=== PATIENT | female | born 1955 | race Caucasian/White ===

== ENCOUNTER → 2017-07-07 | Outpatient (CLI) | payer OTHER ==
[~2017-07-07] MED LIST: METF500 PO; OXYACE5T PO; RANI150 PO; [UNRECOGNIZED DRUG - REMARK]; [UNRECOGNIZED DRUG - REMARK]
[2017-07-07 13:37] LABS: BASOPHILS ABSOLUTE AUTO 0.05 K/mm3 (0.00-0.23); BASOPHILS PERCENT AUTO 1 % (0-2); EOSINOPHILS ABSOLUTE AUTO 0.22 K/mm3 (0.00-0.68); EOSINOPHILS PERCENT AUTO 3 % (0-6); Hematocrit 36.8 % (33.0-51.0); Hemoglobin 12.1 g/dL (11.5-16.0); IMMATURE GRAN ABSOLUTE AUTO 0.02 K/mm3 (0.00-0.10); IMMATURE GRAN PERCENT AUTO 0 % (0-1); LYMPHOCYTES PERCENT AUTO 40 % (21-46); MONOCYTES ABSOLUTE AUTO 0.57 K/mm3 (0.16-1.47); MONOCYTES PERCENT AUTO 9 % (4-13); Mean Corpuscular HGB Conc 32.9 g/dL (31.5-36.5); Mean Corpuscular Volume 88 fL (80-100); Mean Platelet Volume 10.7 fL (9.1-12.4); NEUTROPHILS ABSOLUTE AUTO 3.04 K/mm3 (1.96-9.15); NEUTROPHILS PERCENT AUTO 47 % (41-73); Platelet Count 299 K/mm3 (150-400); RDW Coefficient Variation 12.6 % (11.7-14.2); RDW Standard Deviation 40.7 fL (35.1-46.3); Red Blood Cell Count 4.17 M/mm3 (3.80-5.20)
[2017-07-07 14:39] LABS: Alanine Aminotransfer (ALT/SGP 19 U/L (12-78); Albumin, Blood 3.5 g/dL (3.4-5.0); Albumin/Globulin Ratio 0.9 (0.8-1.8); Alk Phos 70 U/L (50-136); Anion Gap 11 mmol/L (6-16); Aspartate Aminotrans (AST/SGOT 14 U/L (12-37); Bilirubin, Total 0.5 mg/dL (0.1-1.0); Blood Urea Nitrogen 18 mg/dL (8-24); Bun/Creatinine Ratio 19.7 (12.0-20.0); CO2, Blood 25 mmol/L (21-32); Calcium, Blood 9.1 mg/dL (8.5-10.1); Chloride, Blood 103 mmol/L (98-108); Creatinine, Blood 0.92 mg/dL (0.40-1.00); Globulin, Blood 3.9 g/dL (2.2-4.0); Glomerular Filtration Rate >60 (60-); Glucose, Blood 178 mg/dL (70-99); HDL Cholesterol 41 mg/dL (>39); Potassium, Blood 3.9 mmol/L (3.5-5.5); Sodium, Blood 139 mmol/L (136-145); Total Protein, Blood 7.4 g/dL (6.4-8.2); Triglycerides 223 mg/dL (30-160); Very Low Density Lipoprot Chol 44 mg/dL (6-32)
[2017-07-07 15:08] LABS: CHOL/HDL RATIO 3.4; Cholesterol 138 mg/dL (50-200); LDL/HDL RATIO 1.3; Low Density Lipoprotein Chol 52 mg/dL (0-110)
== END | disposition home or self-care (01) ==
LOC: LAB 13:21
PROVIDERS: Nurse Practitioner Family
DX: E03.9 Hypothyroidism, unspecified (principal); I12.9 Hypertensive chronic kidney disease with stage 1 through stage 4 chronic kidney disease, or unspecified chronic kidney disease; N18.2 Chronic kidney disease, stage 2 (mild); E55.9 Vitamin D deficiency, unspecified
CPT/HCPCS: 80053; 80061; 82652; 84443; 85025

== ENCOUNTER 2018-10-22 12:00 | Emergency (ER) | payer OTHER ==
[~2018-10-22] VITALS: Ht 154.9 cm; Wt 104.3 kg
[2018-10-22] MEDS ORDERED: DILT30 PO (12:49)
[2018-10-22] MEDS ORDERED: GLIM2 PO (12:49)
[2018-10-22] MEDS ORDERED: GABA300 PO (12:50)
== END 2018-10-22 13:25 | disposition home or self-care (01) ==
LOC: ER 12:00
DX: S52.501A Unspecified fracture of the lower end of right radius, initial encounter for closed fracture (principal); W18.30XA Fall on same level, unspecified, initial encounter; Z88.2 Allergy status to sulfonamides; Z79.84 Long term (current) use of oral hypoglycemic drugs; Z79.891 Long term (current) use of opiate analgesic; I10 Essential (primary) hypertension; E11.9 Type 2 diabetes mellitus without complications
CPT/HCPCS: 29125; 73030; 73110; 99283-25

== ENCOUNTER 2019-05-26 09:45 | Emergency (ER) | payer SELFPAY ==
[~2019-05-26] VITALS: Ht 154.9 cm; Wt 104.3 kg
[~2019-05-26 09:45] MED LIST changes: +DILT30 PO; +GABA300 PO; +GLIM2 PO
[2019-05-26] MEDS ORDERED: GABA300 PO (09:59)
[2019-05-26] MEDS ORDERED: DILT30 (09:59)
[2019-05-26] MEDS ORDERED: Zantac150 MG (10:00)
[2019-05-26] MEDS ORDERED: Pravachol40 MG PO (10:00)
[2019-05-26] MEDS ORDERED: GLIMEPIRIDE4 MG PO (10:00)
[2019-05-26] MEDS ORDERED: LOSARTAN POTAS100 MG PO (10:01)
[2019-05-26] MEDS ORDERED: Hydrochlorothia25 MG (10:01)
[2019-05-26] MEDS ORDERED: Norco 10-325 T1 EACH PO (10:56)
[2019-05-26] MEDS ORDERED: IBU600 MG PO (10:56)
== END 2019-05-26 11:24 | disposition home or self-care (01) ==
LOC: ER 09:45
DX: S89.91XA Unspecified injury of right lower leg, initial encounter (principal); I10 Essential (primary) hypertension; E11.9 Type 2 diabetes mellitus without complications; Z88.2 Allergy status to sulfonamides; Z79.899 Other long term (current) drug therapy; Z79.84 Long term (current) use of oral hypoglycemic drugs; Z87.891 Personal history of nicotine dependence; X58.XXXA Exposure to other specified factors, initial encounter; Y92.002 Bathroom of unspecified non-institutional (private) residence as the place of occurrence of the external cause
CPT/HCPCS: 29505; 73562-RT; 99283-25

== ENCOUNTER 2023-01-01 03:06 | Emergency (ER) | payer MEDICARE ==
[~2023-01-01] VITALS: Ht 154.9 cm; Wt 106.6 kg
[2023-01-01 03:06] VITALS: BP 137/80
[~2023-01-01 03:06] MED LIST changes: +GLIMEPIRIDE4 MG PO; +Hydrochlorothia25 MG PO; +IBU600 MG PO; +LOSARTAN POTAS100 MG PO; +Norco 10-325 T1 EACH PO; +PRAVASTATIN SOD40 MG PO; +Zantac150 MG
[2023-01-01 03:40] LABS: BASOPHILS ABSOLUTE AUTO 0.01 K/mm3 (0.00-0.23); BASOPHILS PERCENT AUTO 0 % (0-2); EOSINOPHILS ABSOLUTE AUTO 0.04 K/mm3 (0.00-0.68); EOSINOPHILS PERCENT AUTO 1 % (0-6); Hematocrit 36.2 % (33.0-51.0); Hemoglobin 12.1 g/dL (11.5-16.0); IMMATURE GRAN ABSOLUTE AUTO 0.01 K/mm3 (0.00-0.10); IMMATURE GRAN PERCENT AUTO 0 % (0-1); LYMPHOCYTES ABSOLUTE AUTO 0.58 K/mm3 (0.84-5.20); LYMPHOCYTES PERCENT AUTO 13 % (21-46); MONOCYTES ABSOLUTE AUTO 0.47 K/mm3 (0.16-1.47); MONOCYTES PERCENT AUTO 11 % (4-13); Mean Corpuscular HGB 28.9 pg (26.0-34.0); Mean Corpuscular HGB Conc 33.4 g/dL (31.5-36.5); Mean Corpuscular Volume 87 fL (80-100); Mean Platelet Volume 10.3 fL (9.1-12.4); NEUTROPHILS ABSOLUTE AUTO 3.34 K/mm3 (1.96-9.15); NEUTROPHILS PERCENT AUTO 75 % (41-73); Platelet Count 220 K/mm3 (150-400); RDW Coefficient Variation 13.7 % (11.7-14.2); RDW Standard Deviation 42.5 fL (35.1-46.3); Red Blood Cell Count 4.18 M/mm3 (3.80-5.20); White Blood Cell Count 4.45 K/mm3 (4.00-11.30)
[2023-01-01 03:53] LABS: Albumin, Blood 3.1 g/dL (3.4-5.0); Albumin/Globulin Ratio 0.7 (0.8-1.8); Bilirubin, Total 0.2 mg/dL (0.1-1.0); Calcium, Blood 8.6 mg/dL (8.5-10.1); Creatinine, Blood 1.37 mg/dL (0.40-1.00); Globulin, Blood 4.2 g/dL (2.2-4.0); Potassium, Blood 3.1 mmol/L (3.5-5.5); Total Protein, Blood 7.3 g/dL (6.4-8.2)
== END 2023-01-01 04:55 | disposition home or self-care (01) ==
LOC: ER 03:06
PROVIDERS: Emergency Medicine
DX: E11.649 Type 2 diabetes mellitus with hypoglycemia without coma (principal); E87.6 Hypokalemia; Z87.891 Personal history of nicotine dependence; Z88.2 Allergy status to sulfonamides; Z79.899 Other long term (current) drug therapy; Z79.891 Long term (current) use of opiate analgesic; Z79.84 Long term (current) use of oral hypoglycemic drugs; I10 Essential (primary) hypertension
CPT/HCPCS: 80053; 82947; 85025; 93005; 93010; 99285-25; A9270

== ENCOUNTER 2023-01-02 09:07 | Inpatient (IN) | payer MEDICARE ==
[~2023-01-02] VITALS: Ht 157.5 cm; Wt 109.5 kg
[2023-01-02 10:23] LABS: Albumin, Blood 2.9 g/dL (3.4-5.0); Albumin/Globulin Ratio 0.8 (0.8-1.8); Bilirubin, Total 0.2 mg/dL (0.1-1.0); Bun/Creatinine Ratio 17.4 (12.0-20.0); Calcium, Blood 8.8 mg/dL (8.5-10.1); Creatinine, Blood 1.32 mg/dL (0.40-1.00); Globulin, Blood 3.6 g/dL (2.2-4.0); Potassium, Blood 3.7 mmol/L (3.5-5.5); Total Protein, Blood 6.5 g/dL (6.4-8.2)
[2023-01-02 13:39] VITALS: BP 180/66
--- NOTE | 2023-01-02 15:35 | NUR ---
ADMISSION NOTES: PATIENT ARRIVES IN ROOM AT 1335 FROM ER FOR DX OF HYPOGLYCEMIA. PATIENT A&OX4. PLEASANT AND COOPERATIVE c CARE. ADMISSION SCREENING, MEDRIC, AND ASSESSMENT c 2 RN'S SKIN CHECK COMPLETED. PATIENT REPORTS HER BS HAS BEEN RUNNING LOW, COUPLE DAYS AGO IT WAS DOWN TO 50'S AND LAST NIGHT WAS IN THE 70'S. PATIENT ALSO STATED SHE HAS BEEN FEELING VERY WEAK FOR A WEEK NOW AND TWO DAYS AGO SHE SLED HERSELF OUT OF BED AND TOOK ABOUT 20 MINS TO GET HERSELF OFF THE FLOOR. PATIENT REPORTS CHRONIC NUBMNESS AND TINGLING TO BILATERAL HANDS AND FEET. PATIENT DESCRIBES IT "COMES AND GOES AND USUALLY WORSE AT NIGHT." PATIENT DENIES CP/PRESSURE, SOB, N/V AND GENERALIZED PAIN. LUNGS CLEAR T/O TO AUSCULTATIONS. RA c SPO2 OF 98%. PATIENT AMBULATES TO BATHROOM c SBA AND NO ASSISTIVE DEVICE NEEDED. EATING AND DRINKING WELL. PIV TO RAC SALINE LOCKED. BED ALARM ON FOR SAFETY. CALL LIGHT AND ICE WATER WITHIN PATIENT REACH. PATIENT EDUCATED ON NON SMOKING POLICY, RISK OF INJURY, AND IGNITION SOURCES WHEN O2 IN USE. PATIENT DENIES SMOKING AND STATED UNDERSTANDING.
[2023-01-02 16:45] VITALS: BP 146/54
[2023-01-02 19:31] VITALS: BP 144/58
[2023-01-03 03:45] VITALS: BP 182/84
[2023-01-03 04:59] VITALS: BP 163/91
[2023-01-03 05:18] LABS: BASOPHILS ABSOLUTE AUTO 0.02 K/mm3 (0.00-0.23); BASOPHILS PERCENT AUTO 1 % (0-2); EOSINOPHILS PERCENT AUTO 5 % (0-6); Hematocrit 33.3 % (33.0-51.0); Mean Corpuscular HGB 28.5 pg (26.0-34.0); Mean Corpuscular Volume 86 fL (80-100); Mean Platelet Volume 10.1 fL (9.1-12.4); Platelet Count 218 K/mm3 (150-400); RDW Coefficient Variation 13.6 % (11.7-14.2); RDW Standard Deviation 42.5 fL (35.1-46.3); Red Blood Cell Count 3.86 M/mm3 (3.80-5.20); White Blood Cell Count 4.35 K/mm3 (4.00-11.30)
[2023-01-03 05:24] LABS: IMMATURE GRAN ABSOLUTE AUTO 0.01 K/mm3 (0.00-0.10); IMMATURE GRAN PERCENT AUTO 0 % (0-1); LYMPHOCYTES ABSOLUTE AUTO 1.97 K/mm3 (0.84-5.20); LYMPHOCYTES PERCENT AUTO 45 % (21-46); MONOCYTES ABSOLUTE AUTO 0.48 K/mm3 (0.16-1.47); MONOCYTES PERCENT AUTO 11 % (4-13); NEUTROPHILS ABSOLUTE AUTO 1.67 K/mm3 (1.96-9.15); NEUTROPHILS PERCENT AUTO 38 % (41-73)
[2023-01-03 05:35] LABS: Bun/Creatinine Ratio 19.8 (12.0-20.0); Calcium, Blood 9.1 mg/dL (8.5-10.1); Creatinine, Blood 1.31 mg/dL (0.40-1.00)
--- NOTE | 2023-01-03 06:32 | NUR ---
SHIFT SUMMARY NO SIGNS OR SYMPTOMS OF HYPOGLYCEMIA REPORTED THIS SHIFT. RANDOM BG OF 90 OBTAINED TO ASSESS WHERE PT'S BG STATUS REGARDLESS OF NO SYMTOMS. Q1H FIRE SAFETY CHECKS COMPLETED, NO IGNITION SOURCES FOUND
[2023-01-03 07:20] VITALS: BP 149/100
[2023-01-03 16:13] VITALS: BP 155/84
--- NOTE | 2023-01-03 18:23 | NUR ---
SHIFT SUMMARY: PT A&O X4. PT VERY PLEASANT AND COOPERATIVE WITH ALL CARE. INDEPENDENT IN ROOM. PT SPOKE WITH AIR HOLE DRILLER THIS AM AND WAS GIVEN MANY HELPFUL IDEAS ON HOW TO MAINTAIN HEALTHY DIET AND BLOOD SUGAR W/O CAUSING HYPER/HYPOGLYCEMIA. HOSPITALIST D/C HOME ORAL DIABETIC MEDICATIONS. PLAN TO STAY OVERNIGHT AND MONITOR BLOOD SUGARS. BLOOD SUGARS STABLE THROUGHOUT DAY. PT TO HOPEFULLY D/C TOMORROW. SOURCES OF IGNITION DISCUSSED WITH PT BY THIS RN DURING HOURLY ROUNDS AND BY TRUCKING SUPERVISOR THIS AM. PT DOES NOT SMOKE AND VERBALIZES UNDERSTANDING. CALL LIGHT IN REACH. BED IN LOWEST POSITION. WILL CONTINUE TO MONITOR.
[2023-01-03 19:40] VITALS: BP 158/60
[2023-01-04 02:21] VITALS: BP 167/65
--- NOTE | 2023-01-04 04:23 | NUR ---
SHIFT SUMMARY- PT IS ALERT AND ORIENTED X 4. NO ACUTE CHANGES OVER NIGHT. PT CALLS APPROPRIATELY. UNABLE TO FALL ASLEEP. MD NOTIFIED. SEE ORDER. INDEPENDENT IN THE ROOM. PT HAD SNACK BEFORE BED RECOMMENDED BY PROVIDER TO HELP PREVENT HYPOGLYCEMIA OVERNIGHT. PT NEEDS TO BE INSTRUCTED ON HOW TO ADMINISTER INSULIN. PT DENIES SMOKING ANY PRODUCT; PT IS R/A. DURING ROUNDING, EDUCATION PROVIDED ON THE RISKS OF INJURY WHILE USING ANY IGNITION SOURCE AROUND OXYGEN. PT VERBALIZES UNDERSTANDING. PT DENIES HAVING ANY IGNITION SOURCES. BED IS THE LOWEST POSITION WITH CALL LIGHT IN REACH.
[2023-01-04 07:14] VITALS: BP 162/64
[2023-01-04] MEDS ORDERED: DILT60 PO (11:33)
[2023-01-04] MEDS ORDERED: BASAGLAR K100 UNIT/1 SC (11:37)
--- NOTE | 2023-01-04 13:30 | NUR ---
DISCHARGE: PT D/C @ 1530 VIA WHEELCHAIR WITH . IV TAKEN OUT BY CHIDI HEAD W/O COMPLICATIONS. MEDICATIONS FAXED TO [facility]. WAS ABLE TO SHOW PT HOW TO WORK INSULIN PEN PRIOR TO D/C. INSTRUCTIONS IN CHART ON HOW TO WORK IF PT FORGETS. BS STABLE @ D/C. 2 UNITS GIVEN PRIOR TO LUNCH. ALL BELONGINGS SENT WITH PT.
== END 2023-01-04 13:30 | disposition home or self-care (01) | DRG 639 ==
LOC: ER 09:07 → MEDS 09:08 → ENPENDDIS 01-04 10:01 → MEDS 01-04 13:30
PROVIDERS: Student in an Organized Health Care Education/Training Program; ADMIT Internal Medicine
DX: E11.649 Type 2 diabetes mellitus with hypoglycemia without coma (principal); N17.9 Acute kidney failure, unspecified; E11.22 Type 2 diabetes mellitus with diabetic chronic kidney disease; I12.9 Hypertensive chronic kidney disease with stage 1 through stage 4 chronic kidney disease, or unspecified chronic kidney disease; N18.2 Chronic kidney disease, stage 2 (mild); E87.6 Hypokalemia; T38.3X5A Adverse effect of insulin and oral hypoglycemic [antidiabetic] drugs, initial encounter; D63.1 Anemia in chronic kidney disease; E11.40 Type 2 diabetes mellitus with diabetic neuropathy, unspecified; E78.5 Hyperlipidemia, unspecified; M19.90 Unspecified osteoarthritis, unspecified site; Z98.890 Other specified postprocedural states; Z88.2 Allergy status to sulfonamides; Z79.84 Long term (current) use of oral hypoglycemic drugs; Z79.899 Other long term (current) drug therapy; Z79.891 Long term (current) use of opiate analgesic; Z79.1 Long term (current) use of non-steroidal anti-inflammatories (NSAID); Z87.891 Personal history of nicotine dependence
CPT/HCPCS: 36415; 80048; 80053; 82947; 85025; 93005; 93010; 96372; 99285-25; A9270; G0378; J1650; J1815; J7030

== ENCOUNTER → 2023-04-04 | Outpatient (CLI) | payer MEDICARE ==
[~2023-04-04] MED LIST changes: +BASAGLAR K100 UNIT/1 SC; +DILT60 PO
== END | disposition home or self-care (01) ==
LOC: LAB 17:36 → LAB SHORT 17:36
DX: R30.0 Dysuria (principal)
CPT/HCPCS: 87077; 87086; 87186

== ENCOUNTER 2023-07-07 17:44 | Emergency (ER) | payer OTHER ==
[~2023-07-07] VITALS: Ht 154.9 cm; Wt 104.8 kg
[2023-07-07 18:03] VITALS: BP 189/70
[2023-07-07] MEDS ORDERED: METF500C PO (20:59)
[2023-07-07] MEDS ORDERED: OMEP20ER PO (20:59)
[2023-07-07] MEDS ORDERED: LIDOCAINE1 EACH TOP ×2 (21:37→21:38)
[2023-07-07] MEDS ORDERED: Robaxin750 MG PO ×2 (21:37→21:38)
== END 2023-07-07 22:00 | disposition home or self-care (01) ==
LOC: ER 17:44
DX: M54.16 Radiculopathy, lumbar region (principal); Z87.891 Personal history of nicotine dependence; I10 Essential (primary) hypertension; E11.9 Type 2 diabetes mellitus without complications; Z79.84 Long term (current) use of oral hypoglycemic drugs; Z79.4 Long term (current) use of insulin; Z79.899 Other long term (current) drug therapy; Z88.2 Allergy status to sulfonamides
CPT/HCPCS: 96372; 99283-25; A9270; J1885

== ENCOUNTER → 2023-09-20 | Outpatient (CLI) | payer OTHER ==
[~2023-09-20] MED LIST changes: +LIDOCAINE1 EACH TOP; +METF500C PO; +OMEP20ER PO; +Robaxin750 MG PO
[2023-09-20 14:44] LABS: BASOPHILS ABSOLUTE AUTO 0.04 K/mm3 (0.00-0.23); BASOPHILS PERCENT AUTO 1 % (0-2); EOSINOPHILS ABSOLUTE AUTO 0.25 K/mm3 (0.00-0.68); EOSINOPHILS PERCENT AUTO 4 % (0-6); Hemoglobin 11.6 g/dL (11.5-16.0); IMMATURE GRAN ABSOLUTE AUTO 0.02 K/mm3 (0.00-0.10); IMMATURE GRAN PERCENT AUTO 0 % (0-1); LYMPHOCYTES ABSOLUTE AUTO 1.84 K/mm3 (0.84-5.20); LYMPHOCYTES PERCENT AUTO 26 % (21-46); MONOCYTES ABSOLUTE AUTO 0.57 K/mm3 (0.16-1.47); MONOCYTES PERCENT AUTO 8 % (4-13); Mean Corpuscular HGB 28.1 pg (26.0-34.0); Mean Corpuscular HGB Conc 32.2 g/dL (31.5-36.5); Mean Corpuscular Volume 87 fL (80-100); Mean Platelet Volume 9.8 fL (9.1-12.4); NEUTROPHILS ABSOLUTE AUTO 4.28 K/mm3 (1.96-9.15); NEUTROPHILS PERCENT AUTO 61 % (41-73); Platelet Count 261 K/mm3 (150-400); RDW Coefficient Variation 13.8 % (11.7-14.2); RDW Standard Deviation 43.7 fL (35.1-46.3); Red Blood Cell Count 4.13 M/mm3 (3.80-5.20)
[2023-09-20 14:53] LABS: Bun/Creatinine Ratio 19.4 (12.0-20.0); Calcium, Blood 9.1 mg/dL (8.5-10.1); Creatinine, Blood 1.44 mg/dL (0.40-1.00); Potassium, Blood 4.3 mmol/L (3.5-5.5); Uric Acid, Blood 7.1 mg/dL (2.6-6.0)
== END | disposition home or self-care (01) ==
LOC: LAB 14:40 → LAB SHORT 14:40
PROVIDERS: Chiropractor
DX: M79.89 Other specified soft tissue disorders (principal)
CPT/HCPCS: 80048; 84550; 85025

== ENCOUNTER → 2024-08-01 | Outpatient (CLI) | payer OTHER ==
[2024-08-01 18:59] LABS: BASOPHILS ABSOLUTE AUTO 0.04 K/mm3 (0.00-0.23); BASOPHILS PERCENT AUTO 1 % (0-2); EOSINOPHILS PERCENT AUTO 5 % (0-6); Hemoglobin 11.7 g/dL (11.5-16.0); IMMATURE GRAN ABSOLUTE AUTO 0.01 K/mm3 (0.00-0.10); IMMATURE GRAN PERCENT AUTO 0 % (0-1); LYMPHOCYTES ABSOLUTE AUTO 1.65 K/mm3 (0.84-5.20); LYMPHOCYTES PERCENT AUTO 29 % (21-46); MONOCYTES ABSOLUTE AUTO 0.45 K/mm3 (0.16-1.47); MONOCYTES PERCENT AUTO 8 % (4-13); Mean Corpuscular HGB 27.2 pg (26.0-34.0); Mean Corpuscular HGB Conc 31.6 g/dL (31.5-36.5); Mean Corpuscular Volume 86 fL (80-100); Mean Platelet Volume 10.4 fL (9.1-12.4); NEUTROPHILS ABSOLUTE AUTO 3.29 K/mm3 (1.96-9.15); NEUTROPHILS PERCENT AUTO 57 % (41-73); Platelet Count 309 K/mm3 (150-400); RDW Coefficient Variation 13.7 % (11.7-14.2); RDW Standard Deviation 42.6 fL (35.1-46.3); White Blood Cell Count 5.74 K/mm3 (4.00-11.30)
[2024-08-01 20:40] LABS: Alanine Aminotransfer (ALT/SGP 16 U/L (12-78); Albumin, Blood 3.3 g/dL (3.4-5.0); Albumin/Globulin Ratio 0.8 (0.8-1.8); Alk Phos 87 U/L (50-136); Anion Gap 10 mmol/L (3-11); Aspartate Aminotrans (AST/SGOT 14 U/L (12-37); Bilirubin, Total 0.3 mg/dL (0.1-1.0); Blood Urea Nitrogen 28 mg/dL (8-24); Bun/Creatinine Ratio 21.9 (12.0-20.0); CHOL/HDL RATIO 3.4; CO2, Blood 27 mmol/L (21-32); Calcium, Blood 9.4 mg/dL (8.5-10.1); Chloride, Blood 104 mmol/L (98-108); Cholesterol 155 mg/dL (50-200); Creatinine, Blood 1.28 mg/dL (0.40-1.00); Globulin, Blood 4.2 g/dL (2.2-4.0); Glomerular Filtration Rate 45 (60-); Glucose, Blood 164 mg/dL (70-99); HDL Cholesterol 46 mg/dL (>39); LDL/HDL RATIO 1.5; Low Density Lipoprotein Chol 67 mg/dL (0-110); Potassium, Blood 4.3 mmol/L (3.5-5.5); Sodium, Blood 137 mmol/L (136-145); Total Protein, Blood 7.5 g/dL (6.4-8.2); Triglycerides 209 mg/dL (30-160); Very Low Density Lipoprot Chol 41 mg/dL (6-32)
== END ==
LOC: LAB SHORT 18:17 → LAB 18:17
PROVIDERS: Nurse Practitioner Family
DX: I10 Essential (primary) hypertension (principal); E78.5 Hyperlipidemia, unspecified; E55.9 Vitamin D deficiency, unspecified
CPT/HCPCS: 80053; 80061; 82306; 84443; 85025